=== PATIENT | male | born 1990 | race Asian ===

== ENCOUNTER 2025-01-23 20:22 | Emergency (ER) | payer MEDICAID, SELFPAY ==
[2025-01-23 20:23] VITALS: BMI 32.5
[2025-01-23 20:47] VITALS: BP 141/96; PULSE 109; RESP 18; TEMP 36.8; O2SAT 95
--- NOTE | 2025-01-23 20:47 | PD.EDEXREM ---
ED Extremity Problem RME/HPI General Chief complaint: Extremity Problem,Nontraumatic Stated complaint: GOUT FLARE UP, ABD PAIN Time Seen by Provider: 01/23/25 21:03 Arrival date/time: 01/23/25 20:22 RME / HPI RME / HPI Narrative: This section includes all my notes and documentations, including HPI, PE, and ED course. Maxwell Ruvalcaba MD HPI: 34yo male with a history of gout presents to the ED for a chief complaint of right foot pain. Patient states his pain feels similar to his previous gout flare-ups. No other complaints reported. ROS: All negative except as documented in HPI. Physical Exam: General: Alert and oriented. In obvious pain. Eyes: Conjunctivae and lids clear. ENT: No nasal congestion. Neck: Supple. Lungs: No respiratory distress. Skin: Warm and dry. Neuro: Alert and oriented X 3. Right Foot: Great toe remarkable for severe tenderness and erythema and edema and calor. Severe medial calcaneus tenderness. I reviewed all diagnostic test results. My review of the right foot x-ray is no acute findings. At this point, diagnoses include: Gout Plantar fasciitis Treatment here included Tylenol with Codeine, Toradol, Solumedrol, and Cholchicine. Significant improvement. Recommended outpatient management. Based on my best medical judgment, made decision no further evaluation or treatment indicated at this time. Patient understands and agrees to the discharge instructions customized and printed, see below. Discharge Instructions from Dr. Ruvalcaba: --After evaluation, your right great toe pain is due to gout. And your right heel pain is due to plantar fasciitis. See attached handouts. --Gout is a painful form of arthritis caused by an excess of uric acid. This is a waste product made by the body, forming crystals in the joints, bringing on a gout attack. Alcohol and other rich foods/beverages can trigger a gout attack. --Plantar fasciitis is pain and inflammation of the plantar fascia, the tissue at the bottom of your foot that connects the heel bone to the toes. If you strain the plantar fascia, it can develop small tears and cause severe pain. --No weight bearing (wear the post op shoe and use the crutches) for 3 days for rest and healing. Elevate above waist level for 3 days as much as possible. ?Take Prednisone to help decrease the inflammation. --Take colchicine as needed for the gout pain. --Tylenol with codeine for severe pain. --See a private doctor on 01/25/2025 for recheck and further care. Ask for help until you are completely better. ?Seek immediate medical care with worsening or fever or with any concerns. Maxwell Ruvalcaba MD Related Data Home Medications ?Medication ?Instructions ?Recorded ?Confirmed benzonatate 200 mg capsule 200 mg PO TID PRN Cough 05/11/21 05/11/21 clobetasol 0.05 % topical ointment 1 applic topical BID PRN Rash 05/11/21 05/11/21 Previous Rx's ?Medication ?Instructions ?Recorded albuterol sulfate 90 mcg/actuation 2 puff inhalation Q6H PRN 03/30/21 aerosol inhaler (Ventolin HFA) shortness of breath or wheezing #8.5 grams acetaminophen 325 mg tablet (Mapap 650 mg (2 x 325 mg) PO Q6H PRN 05/12/21 (acetaminophen)) Pain Scale 1-3 (Mild #60 tabs albuterol sulfate 90 mcg/actuation 2 puff INH Q4H PRN Shortness Of 05/12/21 aerosol inhaler (Ventolin HFA) Breath #6.7 grams apixaban 5 mg tablet (Eliquis) 5 mg PO BID #70 tabs 05/12/21 benzonatate 100 mg capsule 100 mg PO Q6HR PRN Cough #20 caps 05/12/21 tramadol 37.5 mg-acetaminophen 325 1 tab PO TID PRN pain #15 tabs 02/18/22 mg tablet (Ultracet) acetaminophen 300 mg-codeine 30 mg 1 tab PO QID PRN pain #20 tabs 09/12/23 tablet colchicine 0.6 mg tablet 0.6 mg PO BID #14 tabs 09/12/23 acetaminophen 300 mg-codeine 30 mg 2 tab PO Q8H PRN pain #10 tabs 01/23/25 tablet colchicine 0.6 mg tablet 0.6 mg PO BID PRN pain #10 tabs 01/23/25 prednisone 50 mg tablet 50 mg PO QDAY #3 tabs 01/23/25 Allergies Allergy/AdvReac Type Severity Reaction Status Date / Time adhesive tape Allergy Intermediate Redness of Verified 01/23/25 20:23 Skin Review of Systems Review of Systems Systems Reviewed: All systems reviewed, normal except as documented Past Medical History Past Medical History NEUROLOGIC: Positive Migraine; Negative Neurological Disorders CARDIAC: Positive Hypertension; Negative Cardiac Disorders or Congestive Heart Failure RESPIRATORY: Positive Asthma, Pneumonia (Covid PNA) and Pulmonary Embolism; Negative Chronic Obstructive Pulmonary Disease (COPD) GASTROINTESTINAL: Negative Gastrointestinal Disorders GENITOURINARY: Negative Genitourinary Disorders or Renal Disease MUSCULOSKELETAL: Positive Gout; Negative Musculoskeletal Disorders ENDOCRINE: Negative Endocrine Disorders, Diabetes Mellitus Type 1 or Diabetes Mellitus Type 2 HEMATOLOGIC: Negative Sickle Cell Disease OTHER HISTORY: Negative Blood Transfusions or Cancer Social History SMOKING STATUS: Never smoker SUBSTANCE USE: does not use ED Exam Narrative Physical exam: As noted in HPI. Course Quality Measures none Orders Category Date Time Status Miscellaneous Nursing Order NOW Care 01/23/25 21:32 Completed XR foot comp RT min 3V Stat Exams 01/23/25 20:50 Completed ACETAMINOPHEN w/COD 300-30 [Tylenol w/Cod #3] Med 01/23/25 20:50 Discontinued 2 tab PO X1 ONE Colchicine Med 01/23/25 21:34 Discontinued 1.2 mg PO X1 ONE Ketorolac Inj [Toradol Inj] Med 01/23/25 20:50 Discontinued 60 mg IM X1 ONE MethylPREDNISolone.* [SoluMEDROL Inj] Med 01/23/25 20:50 Discontinued 125 mg IM X1 ONE Vital Signs Vital signs: Vital Signs Temperature 98.2 F 01/23/25 20:47 Pulse Rate 109 H 01/23/25 20:47 Respiratory Rate 18 01/23/25 20:47 Blood Pressure 141/96 H 01/23/25 20:47 Pulse Oximetry (%) 95 01/23/25 20:47 Oxygen Delivery Method Room Air 01/23/25 20:47 Extremity Problem MDM Narrative MDM Narrative:: Scribe Attestation: 01/23/25 Josie Kendrick am scribing for and in the presence of Dr. Ruvalcaba. 34yo male with a history of gout presents to the ED for a chief complaint of right foot pain. Patient states his pain feels similar to his previous gout flare-ups. No other complaints reported. Patient data External records reviewed:: [facility] previous records (Per chart review, patient was seen here on 09/12/23 for acute foot pain.) Clinical information provided by:: patient Social determinants that could affect healthcare access:: none Patient has the following chronic illnesses:: asthma, gout How is presenting disease/condition affected by chronic disease/condition?: exacerbated by Evaluation data The following diagnostics were reviewed and interpreted by me:: radiology exam(s) Lab and/or radiology exams considered but not ordered:: none Interpretation Summary: I reviewed all diagnostic test results. My review of the right foot x-ray is no acute findings. Medications / Prescriptions Medications or Prescriptions considered but not ordered:: none Medication administrations:: Medication Administration History Discontinued Medications Acetaminophen/Codeine Phosphate (Acetaminophen W/Cod 300-30 Tablet) 2 tab PO X1 ONE Stop: 01/23/25 20:51 Last Admin: 01/23/25 21:13 Dose: 2 tab Documented By: CVL Colchicine (Colchicine 0.6 Mg Tablet) 1.2 mg PO X1 ONE Stop: 01/23/25 21:35 Last Admin: 01/23/25 22:08 Dose: 1.2 mg Documented By: CVL Ketorolac Tromethamine (Ketorolac Inj 60 Mg/2 Ml Vial) 60 mg IM X1 ONE Stop: 01/23/25 20:51 Last Admin: 01/23/25 21:10 Dose: 60 mg Documented By: CVL Methylprednisolone Sodium Succinate (Methylprednisolone Sod Succ 62.5 Mg/Ml 2ml Vial) 125 mg IM X1 ONE Stop: 01/23/25 20:51 Last Admin: 01/23/25 21:12 Dose: 125 mg Documented By: CVL Tylenol wiht Codeine, Toradol, Solumedrol, Cholchicine Consultations Consultation(s) initiated? (list below): No Diagnosis Extremity Problem Differential Diagnosis: gout, cellulitis, superficial thrombophlebitis, deep venous thrombosis of upper extremity, lower extremity edema and deep vein thrombosis of lower extremity Most likely diagnosis given after review of the tests above:: Gouty arthritis of right great toe, Plantar fasciitis of right foot Admission Indicated Admission indicated?: not indicated Explain why admission is indicated or not indicated:: With significant improvement, there was no indication for admission. Admission Request Was there a request for admission?: No Disposition Plan Disposition Plan: Discharge Discharge Attestation Discharge Attestation: The patient and all family members were given an opportunity to ask questions and understood the discharge instructions. Discharge instructions specifically effects, indications for sooner follow up or return to the emergency department, and the expected course of current diagnosis. Patient condition: Stable Discharge Plan Plan Patient Disposition: HOME (Self Care) Prescriptions/Referrals Prescriptions/Med Rec: New colchicine 0.6 mg tablet 0.6 mg PO BID PRN (Reason: pain) Qty: 10 0RF acetaminophen-codeine 300-30 mg tablet 2 tab PO Q8H MDD 6 PRN (Reason: pain) Qty: 10 0RF prednisone 50 mg tablet 50 mg PO QDAY Qty: 3 0RF No Action albuterol sulfate [Ventolin HFA] 90 mcg/actuation HFA aerosol inhaler 2 puff inhalation Q6H PRN (Reason: shortness of breath or wheezing) Qty: 8.5 0RF benzonatate 200 mg Capsule 200 mg PO TID PRN (Reason: Cough) clobetasol 0.05 % Ointment 1 applic TOPICAL BID PRN (Reason: Rash) acetaminophen [Mapap (acetaminophen)] 325 mg Tablet 650 mg PO Q6H PRN (Reason: Pain Scale 1-3 (Mild) Qty: 60 0RF benzonatate 100 mg Capsule 100 mg PO Q6HR PRN (Reason: Cough) Qty: 20 0RF albuterol sulfate [Ventolin HFA] 90 mcg/actuation Hfa Aerosol Inhaler 2 puff INH Q4H PRN (Reason: Shortness Of Breath) Qty: 6.7 1RF Eliquis 5 mg tablet 5 mg PO BID Qty: 70 3RF Rx Instructions: 2 tablets twice daily through this coming Friday, and then continue with 1 tablet twice daily tramadol-acetaminophen [Ultracet] 37.5-325 mg tablet 1 tab PO TID PRN (Reason: pain) Qty: 15 0RF acetaminophen-codeine 300-30 mg tablet 1 tab PO QID PRN (Reason: pain) Qty: 20 0RF colchicine 0.6 mg tablet 0.6 mg PO BID Qty: 14 0RF Referrals: Oneil Dave MD [Primary Care Provider] - In 1 week Problem List Clinical Impression: Gouty arthritis of right great toe, Plantar fasciitis of right foot Patient/Caregiver Discharge Instructions Discharge Activity: activity as tolerated Education Materials: ED Gout, ED Plantar Fasciitis Additional Instructions: Discharge Instructions from Dr. Ruvalcaba: --After evaluation, your right great toe pain is due to gout. And your right heel pain is due to plantar fasciitis. See attached handouts. --Gout is a painful form of arthritis caused by an excess of uric acid. This is a waste product made by the body, forming crystals in the joints, bringing on a gout attack. Alcohol and other rich foods/beverages can trigger a gout attack. --Plantar fasciitis is pain and inflammation of the plantar fascia, the tissue at the bottom of your foot that connects the heel bone to the toes. If you strain the plantar fascia, it can develop small tears and cause severe pain. --No weight bearing (wear the post op shoe and use the crutches) for 3 days for rest and healing.? Elevate above waist level for 3 days as much as possible.? ?Take Prednisone to help decrease the inflammation.?? --Take colchicine as needed for the gout pain. --Tylenol with codeine for severe pain. --See a private doctor on 01/25/2025 for recheck and further care. Ask for help until you are completely better. ?Seek immediate medical care with worsening or fever or with any concerns.?? Print Language: Setswana Stand Alone Forms: [employer] Award Info., Patient Portal Info Letter
--- NOTE | 2025-01-23 20:50 | XR_ITS ---
Examination: Foot, right, 3 views Technique: AP, oblique, lateral views foot, 3 views Date and time of exam: January 23, 2025 1853 hours INDICATIONS: Foot pain today FINDINGS: Moderate narrowing first metatarsal phalangeal joint No fracture No erosive arthritis Soft tissue swelling dorsum left foot IMPRESSION: Moderate narrowing first metatarsophalangeal joint Significant soft tissue swelling dorsum of the foot No erosive arthritis
[2025-01-23] MEDS: KETOROLAC INJ 60 MG/2 ML VIAL IM (21:10)
[2025-01-23] MEDS: MethylPREDNISolone SOD SUCC 62.5 MG/ML 2ML VIAL 125 MG IM (21:12)
[2025-01-23] MEDS: ACETAMINOPHEN w/COD 300-30 TABLET 2 TAB PO (21:13)
[2025-01-23] MEDS: COLCHICINE 0.6 MG TABLET 1.2 MG PO (22:08)
[2025-01-23 22:18] VITALS: RESP 16
== END 2025-01-23 22:19 | disposition home or self-care (01) ==
PROVIDERS: Emergency Provider Emergency Medicine; PCP Family Medicine
DX: M10.071 Idiopathic gout, right ankle and foot (principal); M72.2 Plantar fascial fibromatosis
CPT/HCPCS: 73630; 96372; 99283; J1885; J2919; A9270

== ENCOUNTER 2025-07-25 15:40 | Emergency (ER) | payer SELFPAY ==
[2025-07-25 15:46] VITALS: BP 143/77; PULSE 109; RESP 20; TEMP 38.8; O2SAT 92
--- NOTE | 2025-07-25 15:51 | XR_ITS ---
EXAMINATION: PA chest single view TECHNIQUE: Upright PA chest single view Date and time: July 25, 2025, 1605 hours INDICATION: Fever coughing 3 days. FINDINGS: Subtle diffuse areas of pneumonia in the right lung and pneumonia left base Normal heart size Osseous rectors are intact IMPRESSION: Significant bilateral pneumonia
--- NOTE | 2025-07-25 15:52 | EDNOTE_ITS ---
<Statement entered by Katie Murray MD - 07/26/25 17:48> As co-signing physician, I was present and available for consult prn. I concur with the plan and care as documented by the midlevel provider. Upper Respiratory Inf. RME/HPI General Chief Complaint: Flu Like Symptoms Stated Complaint: FEVER, COUGH, CONGESTION, KELLEY Time Seen by Provider: 07/25/25 15:44 Source: patient, RN notes reviewed and old records reviewed Arrival date/time: 07/25/25 15:40 Mode of arrival: ambulatory Limitations: no limitations RME / HPI RME / HPI Narrative: 35yom presents to ED for 2-day history of intermittent fever, congestion and cough. Patient states significant other and his children currently have similar symptoms. Patient c/o mild headache and generalized body aches. Reports mild sob. Hx asthma but out of inhaler at home. No sore throat, chest pain, nausea/vomiting, dizziness or syncope reported. Patient has taken DayQuil, TheraFlu and Tessalon Perles with mild relief. Related Data Home Medications ?Medication ?Instructions ?Recorded ?Confirmed benzonatate 200 mg capsule 200 mg PO TID PRN Cough 08/3105/11/21 clobetasol 0.05 % topical ointment 1 applic topical BI D PRN Rash 05/11/21 05/11/21 Previous Rx's ?Medication ?Instructions ?Recorded albuterol sulfate 90 mcg/actuation 2 puff inhalation Q 6H PRN 03/30/21 aerosol inhaler (Ventolin HFA) shortness of breath or wheezing #8.5 grams acetaminophen 325 mg tablet (Mapap 650 mg (2 x 325 mg) PO Q6H PRN 05/12/21 (acetaminophen)) Pain Scale 1-3 (Mild #60 tab s albuterol sulfate 90 mcg/actuation 2 puff INH Q4H PRN Shortness Of 05/12/21 aerosol inhaler (Ventolin HFA) Breath #6.7 grams apixaban 5 mg tablet (Eliquis) 5 mg PO BID #70 tabs benzonatate 100 mg capsule 100 mg PO Q6HR PRN Cough #2 0 caps 05/12/21 tramadol 37.5 mg-acetaminophen 325 1 tab PO TID PRN pa in #15 tabs 02/18/ mg tablet (Ultracet) acetaminophen 300 mg-codeine 30 mg 1 tab PO QID PRN pa in #20 tabs 09/12/23 tablet colchicine 0.6 mg tablet 0.6 mg PO BID #14 tabs 09/12 acetaminophen 300 mg-codeine 30 mg 2 tab PO Q8H PRN pa in #10 tabs 01/23/25 tablet colchicine 0.6 mg tablet 0.6 mg PO BID PRN pain #10 t abs 01/23/25 prednisone 50 mg tablet 50 mg PO QDAY #3 tabs acetaminophen 500 mg tablet 1,000 mg (2 x 500 mg) PO Q 6H PRN 07/25/25 (Tylenol Extra Strength) fever or pain #30 tabs albuterol sulfate 90 mcg/actuation 2 puff inhalation Q 4H PRN 07/25/25 aerosol inhaler (Ventolin HFA) shortness of breath or wheezing #18 grams amoxicillin 875 mg-potassium 1 tab PO BID 7 days #14 t abs 07/25/25 clavulanate 125 mg tablet azithromycin 250 mg tablet See Rx Instructions PO .COM PLEX #6 07/25/25 tabs dextromethorphan-guaifenesin ER 60 1 tab PO BID PRN co ugh #20 tabs 07/25/25 mg-1,200 mg tab,extend release,12hr (Mucinex DM) ibuprofen 600 mg tablet 600 mg PO Q6H PRN fever or p ain 07/25/25 #30 tabs prednisone 50 mg tablet 50 mg PO QDAY 5 days #5 tabs 07/25/25 Allergies Allergy/AdvReac Type Severity Reaction Status Date / Time adhesive tape Allergy Intermediate Redness of Verified 01/23/25 20:23 Skin Review of Systems Review of Systems Systems Reviewed: All systems reviewed, normal except as documented Constitutional Constitutional: Reports chills, Reports fever(s) and Reports headache(s) ENT Ears, Nose, Mouth, and Throat: Denies dizziness, Reports headache(s), Reports nasal congestion and Denies sore throat Cardiovascular Cardiovascular: Denies chest pain, Reports dyspnea and Denies syncope Respiratory Respiratory: Reports cough and Reports dyspnea Gastrointestinal Gastrointestinal: Denies nausea and Denies vomiting Musculoskeletal Musculoskeletal: Reports myalgias Neurologic Neurologic: Denies dizziness, Reports headache(s) and Denies syncope Past Medical History Past Medical History NEUROLOGIC: Positive Migraine CARDIAC: Positive Hypertension RESPIRATORY: Positive Asthma MUSCULOSKELETAL: Positive Gout Surgical History OTHER SURGICAL HX: denies pshx Social History SMOKING STATUS: Never smoker SUBSTANCE USE: does not use ALCOHOL: Never ED Exam General Limitations: Present no limitations General appearance: Present alert and in no apparent distress Head Head exam: Present atraumatic and normocephalic Eye Eye exam: Present normal appearance, PERRL and EOMI ENT ENT exam: Present normal oropharynx, mucous membranes moist, TM's normal bilaterally and other (Mild UAC) Neck Neck exam: Present normal inspection and full ROM; Absent meningismus Chest Chest inspection: Present normal inspection and symmetric chest wall rise Respiratory Respiratory exam: Present normal lung sounds bilaterally and other (No wheezing, rales or rhonchi); Absent respiratory distress Cardiovascular Cardiovascular exam: Present normal rhythm and tachycardia (Febrile) Extremities Exam Extremities exam: Present normal inspection and full ROM Neurological Exam Neurological exam: Present alert and oriented X3 Psychiatric Psychiatric exam: Present normal affect and normal mood Skin Skin exam: Present warm, dry, intact and normal color Course Quality Measures none Orders Category Date Time Status Bedside COVID-19 Antigen Test NOW Care 07/25/25 15:51 Completed Bedside Influenza A&B Antigen Test NOW Care 07/25/25 15:52 Completed CXR1 [XR chest 1V] Stat Exams 07/25/25 15:51 Completed Acetaminophen Tab [Tylenol ES Tab] Med 07/25/25 15:51 Discontinued 1,000 mg PO X1 ONE Albuterol/Ipratr Rt Susan [Duoneb Rt Susan] Med 07/25/25 15:51 Discontinued 3 ml INH X1 ONE Ibuprofen Tab [Motrin Tab] Med 07/25/25 15:51 Discontinued 800 mg PO X1 ONE dexAMETHasone INJ [Decadron Inj] Med 07/25/25 15:51 Discontinued 10 mg PO X1 ONE Vital Signs Vital signs: Vital Signs Temperature 101.8 F H 07/25/25 15:46 Pulse Rate 109 H 07/25/25 15:46 Respiratory Rate 20 07/25/25 15:46 Blood Pressure 143/77 H 07/25/25 15:46 Pulse Oximetry (%) 92 L 07/25/25 15:46 Oxygen Delivery Method Room Air 07/25/25 15:46 Upper Respiratory Infection MDM Narrative MDM Narrative:: 35yom presents to ED for 2-day history of intermittent fever, congestion and cough. Patient states significant other and his children currently have similar symptoms. Patient c/o mild headache and generalized body aches. Reports mild s ob. Hx asthma but out of inhaler at home. No sore throat, chest pain, nausea/vomiting, dizziness or syncope reported. Patient has taken DayQuil, TheraFlu and Tessalon Perles with mild relief. Patient reassessed. He is feeling better, symptoms improved. Will treat for pneumonia. Encouraged rest, fluids, symptomatic treatment, fever management prn. Stable for discharge, RTED precautions given. Patient data External records reviewed:: [facility] previous records (01/23/2025 ED visit for gouty arthritis of right great toe) Clinical information provided by:: patient Social determinants that could affect healthcare access:: other (specify) (Poor access to healthcare) Patient has the following chronic illnesses:: asthma How is presenting disease/condition affected by chronic disease/condition?: exacerbated by Evaluation data The following diagnostics were reviewed and interpreted by me:: lab results and radiology exam(s) Lab and/or radiology exams considered but not ordered:: none Interpretation Summary: CXR: pneumonia per my read Negative covid/flu Medications / Prescriptions Medications or Prescriptions considered but not ordered:: None Medication administrations:: Medication Administration History Discontinued Medications Acetaminophen (Acetaminophen 500 Mg Tablet) 1,000 mg PO X1 ONE Stop: 07/25/25 15:52 Last Admin: 07/25/25 16:27 Dose: 1,000 mg Documented By: TRU Albuterol/Ipratropium (Albuterol/Ipratropium (Duoneb) Rt Susan 3 Ml Nebu) 3 ml INH X1 ONE Stop: 07/25/25 15:52 Last Admin: 07/25/25 16:14 Dose: 3 ml Documented By: JACLYN Dexamethasone Sodium Phosphate (Dexamethasone Sod Phos Inj 10 Mg/Ml Vial) 10 mg PO X1 ONE Stop: 07/25/25 15:52 Last Admin: 07/25/25 16:27 Dose: 10 mg Documented By: TRU Ibuprofen (Ibuprofen Tab 400 Mg Tablet) 800 mg PO X1 ONE Stop: 07/25/25 15:52 Last Admin: 07/25/25 16:27 Dose: 800 mg Documented By: TRU Above medications administered in ED Consultations Consultation(s) initiated? (list below): No Diagnosis Upper Respiratory Differential Diagnosis: other (URI, COVID, flu, viral illness, bronchitis, pneumonia, asthma exacerbation) Most likely diagnosis given after review of the tests above:: Pneumonia, asthma exacerbation Admission Indicated Admission indicated?: not indicated Admission Request Was there a request for admission?: No Disposition Plan Disposition Plan: Discharge Discharge Attestation Discharge Attestation: The patient and all family members were given an opportunity to ask questions and understood the discharge instructions. Discharge instructions specifically effects, indications for sooner follow up or return to the emergency department, and the expected course of current diagnosis. Patient condition: Stable Discharge Plan Plan Patient Disposition: HOME (Self Care) Patient condition on transfer: Stable Prescriptions/Referrals Prescriptions/Med Rec: New amoxicillin-pot clavulanate 875-125 mg tablet 1 tab PO BID 7 Days Qty: 14 0RF azithromycin 250 mg tablet See Rx Instructions .ROUTE .COMPLEX Qty: 6 0RF Rx Instructions: For 250 mg dose pack: take 500 mg today (day 1), then 250 mg for 4 days (days 2-5) dextromethorphan-guaifenesin [Mucinex DM] 60-1,200 mg tablet extended release 12 hr 1 tab PO BID PRN (Reason: cough) Qty: 20 0RF albuterol sulfate [Ventolin HFA] 90 mcg/actuation HFA aerosol inhaler 2 puff inhalation Q4H PRN (Reason: shortness of breath or wheezing) Qty: 18 0RF acetaminophen [Tylenol Extra Strength] 500 mg tablet 1,000 mg PO Q6H PRN (Reason: fever or pain) Qty: 30 0RF ibuprofen 600 mg tablet 600 mg PO Q6H PRN (Reason: fever or pain) Qty: 30 0RF prednisone 50 mg tablet 50 mg PO QDAY 5 Days Qty: 5 0RF No Action albuterol sulfate [Ventolin HFA] 90 mcg/actuation HFA aerosol inhaler 2 puff inhalation Q6H PRN (Reason: shortness of breath or wheezing) Qty: 8.5 0RF benzonatate 200 mg Capsule 200 mg PO TID PRN (Reason: Cough) clobetasol 0.05 % Ointment 1 applic TOPICAL BID PRN (Reason: Rash) acetaminophen [Mapap (acetaminophen)] 325 mg Tablet 650 mg PO Q6H PRN (Reason: Pain Scale 1-3 (Mild) Qty: 60 0RF benzonatate 100 mg Capsule 100 mg PO Q6HR PRN (Reason: Cough) Qty: 20 0RF albuterol sulfate [Ventolin HFA] 90 mcg/actuation Hfa Aerosol Inhaler 2 puff INH Q4H PRN (Reason: Shortness Of Breath) Qty: 6.7 1RF Eliquis 5 mg tablet 5 mg PO BID Qty: 70 3RF Rx Instructions: 2 tablets twice daily through this coming Friday, and then continue with 1 tablet twice daily tramadol-acetaminophen [Ultracet] 37.5-325 mg tablet 1 tab PO TID PRN (Reason: pain) Qty: 15 0RF acetaminophen-codeine 300-30 mg tablet 1 tab PO QID PRN (Reason: pain) Qty: 20 0RF colchicine 0.6 mg tablet 0.6 mg PO BID Qty: 14 0RF colchicine 0.6 mg tablet 0.6 mg PO BID PRN (Reason: pain) Qty: 10 0RF acetaminophen-codeine 300-30 mg tablet 2 tab PO Q8H MDD 6 PRN (Reason: pain) Qty: 10 0RF prednisone 50 mg tablet 50 mg PO QDAY Qty: 3 0RF Referrals: No Primary/Family,Physician [Referring Provider] - In 1 week Problem List Clinical Impression: Pneumonia, Asthma exacerbation, Cough Patient/Caregiver Discharge Instructions Education Materials: ED Pneumonia (Adult) Print Language: Ugandan Stand Alone Forms: [employer] Award Info., Work/School Release, Patient Portal Info Letter PA/AUTOMATIC OUTSOLE CUTTER Supervising Physician PA/AUTOMATIC OUTSOLE CUTTER Supervising Physician: Trevor
[2025-07-25 16:14] VITALS: PULSE 107; RESP 20; O2SAT 99
[2025-07-25] MEDS: ALBUTEROL/IPRATROPIUM (Duoneb) RT SOL 3 ML NEBU INH (16:14)
[2025-07-25 16:27] VITALS: TEMP 38.8
[2025-07-25] MEDS: ACETAMINOPHEN 500 MG TABLET 1000 MG PO (16:27)
[2025-07-25] MEDS: IBUPROFEN TAB 400 MG TABLET 800 MG PO (16:27)
[2025-07-25 17:47] VITALS: BP 145/90; PULSE 100; RESP 18; TEMP 37.4; O2SAT 98
== END 2025-07-25 18:37 | disposition home or self-care (01) ==
PROVIDERS: Emergency Provider Emergency Medicine; PCP Family Medicine
DX: J45.901 Unspecified asthma with (acute) exacerbation (principal); J18.9 Pneumonia, unspecified organism
CPT/HCPCS: 71045; 87502; 87635; 94640; 99283; A9270; J1100